=== PATIENT | male | born 1940 | race Caucasian/White ===

== ENCOUNTER 2021-09-24 20:14 | Inpatient (IN) | payer MEDICARE, SELFPAY ==
--- NOTE | ~2021-09-24 | XR_ITS ---
EXAMINATION: XR stent kub - surgery DATE: 09/27/2021 15:02 INDICATION: Left internal ureteral stent placement TECHNIQUE: Fluoroscopic images from a left internal ureteral stent placement are submitted for review . 16 seconds of fluoroscopy time. FINDINGS: There is a left double-J internal ureteral stent projecting in expected position, with proximal Cushing loop at the level of the renal pelvis and distal loop in the pelvis within the bladder lumen. IMPRESSION: 1. Left internal ureteral stent placement. Please refer to real-time procedural findings for detail s. Reviewed, dictated and finalized at location B. IMPRESSION: 1. Left internal ureteral stent placement. Please refer to real-time procedur al findings for details.
--- NOTE | ~2021-09-24 | NM_ITS ---
EXAMINATION: NM hepatobiliary w pharm DATE: 09/25/2021 15:15 INDICATION: Acute cholecystitis. Epigastric abdominal pain. COMPARISON: CT abdomen and pelvis 09/24/2021 TECHNIQUE: 4.9 mCi Tc-99m mebrofenin (Choletec) was administered intravenously. Scintigraphic images of the abdomen were obtained for one hour. Then, 2 mg morphine IV was administered, and imaging was continued for 30 minutes. FINDINGS: There is normal clearance of radiotracer from the blood pool. There is homogeneous tracer u ptake by the liver. Activity progresses to the bowel. There is no activity in the gallbladder. IMPRESSION: 1. Acute cholecystitis. Reviewed, dictated and finalized at location A. IMPRESSION: 1. Acute cholecystitis.
--- NOTE | 2021-09-24 20:00 | ADMGEN ---
This patient, Ruiz Stanton, was admitted to 2 Medical Room 244-. Patient/family oriented to hospital policies and general routines including ID bracelet, bed and alarms, visiting hours, pain management, procedures, bathroom and other care routines, personal items, smoking policy, room service/diet, and visiting hours. Information on how to activate the Rapid Response Team has been discussed. Patient/Family are encouraged to report perceived risks to care and to ask questions if they do not understand what they are told or what they should do.
[2021-09-24 20:20] VITALS: BMI 28.5
--- NOTE | 2021-09-24 20:20 | PM.IMHP ---
H&P: HPI History of Present Illness Date/Time: 09/24/21 20:20 Chief Complaint: Abdominal pain Narrative: 81-year-old male with past medical history of hyperlipidemia and cardiac murmur who presented to [facility] in [facility] with epigastric abdominal pain. The patient presented to the hospital just before midnight on the . He reports that earlier that day he had eaten a large bowl of cereal after which time he began having epigastric abdominal pain as 7/10 in intensity. The pain was aching in nature without any relieving factors. He denied any associated nausea or vomiting. He was told he had a heart murmur several months ago but refused echocardiogram at that time. He denies any orthopnea, paroxysmal nocturnal dyspnea or dyspnea on exertion. In fact he works out on a treadmill for 15 minutes twice a day walking between 2 and 3 mph without symptoms. He denies a history of hypertension. He reports that his blood pressures for the most part or around [address] scan at the outside facility demonstrated evidence of acute cholecystitis with a 5 by 12 mm gallstone impacted in the gallbladder neck with wall thickening 5-6 mm. There was also an incidental finding of an 8 x 6 x 12 mm proximal to mid left ureteral stone with moderate to severe left hydronephrosis and minimal bilateral perinephric stranding with delayed enhancement of the left kidney consistent with chronic obstructive uropathy. He reports that he has had up to 50 kidney stones that he usually passes on his own. He denies any flank pain, dysuria or changes in urinary frequency. He feels as if TMs uses bladder completely. He also had incidental finding of a 3.2 cm abdominal aortic aneurysm and a 1.9 cm proximal right common iliac artery aneurysm. He denies any cough or congestion. He has not had any nausea or vomiting. He has been having normal bowel movements without hematochezia or melena. He reports that he has been NPO since he arrived at the outside facility on the . He was anticipating having surgery on the but the surgeon at that facility did not feel comfortable taking the patient to surgery due to his cardiac murmur. He felt the patient was too high risk for surgery at that facility subsequently the patient was transferred to our facility for surgical evaluation. Vitals at the outside facility blood pressure 145/74 pulse 88 satting 95% on room air. Review of Systems Review of Systems: 12 systems were reviewed with pertinent positives and negatives per HPI. Except as documented in the HPI, all other systems were reviewed and are negative. [facility] Past Medical History Medical History (Updated 09/25/21 @ 03:36 by Kalina Rizzo DO) Cardiac murmur Chronic neuropathic pain Hyperlipidemia Shingles He reports that he takes duloxetine 300 mg daily due to chronic pain from shingles. Surgical History Surgical History (Updated 09/25/21 @ 03:20 by Kalina Rizzo DO) Status post cataract extraction of both eyes with insertion of intraocular lens Family History Family History (Updated 09/25/21 @ 03:21 by Kalina Rizzo DO) Father , Age greater than 80 No problems noted. Mother , Age greater than 80 No problems noted. Social History Social History (Updated 09/25/21 @ 03:36 by Kalina Rizzo DO) Social History: He lives with his of almost 60 years. He quit smoking over 40 years ago and only smoked 1 cigar a day. 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 He has never drank alcohol and denies any illicit substance use. Code status: DNR/DNI (per patient request) Primary care physician: Dr. James Groves Smoking status: Never smoker Alcohol intake: never Substance use: never Spiritual care concerns: No Comments The patient reports that his siblings are still alive and are in their late
[2021-09-24 20:21] VITALS: BP 141/71; PULSE 89; RESP 20; TEMP 37.1; O2SAT 97
[2021-09-24 20:26] VITALS: BP 141/71; PULSE 89; RESP 20; TEMP 37.1; O2SAT 97
[2021-09-24] MEDS: SODIUM CHLORIDE 0.9% IV 1,000 ML 100 ML IV CONT (22:01)
[2021-09-25] VITALS (7 sets, daily range): BP systolic 135–148; BP diastolic 62–71; PULSE 82–102; RESP 16–20; TEMP 36.4–37.4; O2SAT 92–100
--- NOTE | 2021-09-25 | ECHO_ITS ---
Patient Info Name: Ruiz Stanton Age: 81 years : 1940 Gender: Male Ht: 67 in Wt: 182 lbs BSA: 2.00 m2 HR: 93 bpm BP: 138 / 68 mmHg Heart Rhythm: Sinus Rhythm Technical Quality: Fair Exam Date: 09/25/2021 6:42 AM Exam Location: [facility] Patient Status: Outpatient Admit Date: 09/24/2021 Staff Ordering Physician: Kalina Rizzo DO Silo Erector: Quita Lux RDCS Attending Provider: Bismark Orozco MD Referring Physician: Matthias LIRIANO; Exam Type: CA echo dop color flow w con Study Info Indications - Cardiac murmur Complete two-dimensional, color flow and Doppler transthoracic echocardiogram is performed with contrast to opacify the left ventricle and to improve the deliniation of the left ventricle endocardial borders. Contrast/Agitated Saline Contrast/Ag. Saline: Definity Amount: 2.00 ml Administered By: Quita Lux RDCS Existing IV Access: Yes IV Access Condition: patent with no signs of infiltration Summary 1. Normal left ventricular size and thickness. Overall good left ventricular systolic function with mild hypokinesis of the basal septum. Grade 1 diastolic dysfunction is present. Ejection fraction is visually estimated to be 55-60%. 2. Left atrial chamber dimension is mildly enlarged. 3. There is mild tricuspid valve regurgitation. 4. Mild pulmonary hypertension, estimated pulmonary arterial systolic pressure is 47 mmHg. 5. Mild aortic valve calcifications with mild aortic stenosis, valve area 1.6 cm2, mean gradient 10 mmHg. 6. Normal sinus rhythm. 7. Somewhat technically difficult study; definity echo contrast used. Left Ventricle Left ventricular systolic function is normal, estimated at 55-60%. The left ventricular diastolic function is grade I diastolic dysfunction. Left Atria Left atrial chamber dimension is mildly enlarged. Aortic Valve There is mild aortic valve calcification. Pulmonic Valve There is trace pulmonic regurgitation. Mitral Valve There is trace mitral valve regurgitation. Tricuspid Valve There is mild tricuspid valve regurgitation. Mild pulmonary hypertension, estimated pulmonary arterial systolic pressure is 47 mmHg. Left Ventricular Outflow Tract Name Value Normal LVOT 2D LVOT Diameter 2.11 cm LVOT Doppler LVOT Peak Gradient 5 mmHg LVOT Mean Gradient 2 mmHg LVOT VTI 17.03 cm LVOT VTI/AV VTI Ratio 0.45 LVOT Stroke Volume 59.73 ml LVOT CO 5.37 l/min LVOT CI 2.69 L/min/m2 Pulmonic Valve Name Value Normal RVOT Doppler RVOT Peak Gradient 3 mmHg PV Doppler
[2021-09-25 05:55] LABS: Basophils Absolute Auto 0.1 K/mm3 (0.0-0.1); Basophils Percent Auto 0.3 % (0.2-1.2); Eosinophils Percent Auto 0.1 % (0-4.4); Hematocrit 35.5 % (42.0-52.0); Hemoglobin 11.5 g/dL (14.0-18.0); Immature Granulocyte Absolute 0.09 K/mm3 (0.00-0.031); Immature Granulocyte Percent A 0.5 % (0-0.5); Lymphocytes Absolute Auto 1.75 K/mm3 (0.9-3.2); Mean Corpuscular HGB Conc 32.4 g/dl (32-36); Mean Corpuscular Hemoglobin 33.4 pg (26-34); Mean Corpuscular Volume 103.2 fl (80-100); Mean Platelet Volume 9.7 fl (7.4-10.4); Monocytes Absolute Auto 1.8 K/mm3 (0.1-0.6); Monocytes Percent Auto 10.1 % (2.6-8.5); Neutrophils Absolute Auto 13.9 K/mm3 (1.3-6.7); Platelet Count Result 171 k/mm3 (150-375); Red Blood Count 3.44 M/mm3 (4.6-6.20); Red Cell Distribution Width 13.6 % (11.5-14.5); White Blood Count 17.5 K/mm3 (4.5-10.0)
[2021-09-25 06:09] LABS: Alanine Aminotransferase 14 U/L (4-50); Albumin Level 3.6 g/dL (3.5-5.1); Alkaline Phosphatase 51 U/L (38-126); Anion Gap 5 mmol/L (8-16); Aspartate Amino Transferase 43 U/L (17-59); Bilirubin,Total 0.7 mg/dL (0.2-1.3); Blood Urea Nitrogen 19 mg/dL (9-20); Calcium 8.2 mg/dL (8.4-10.2); Carbon Dioxide 27 mmol/L (22-30); Chloride 106 mmol/L (98-107); Estimated CRCL calculation 31 ml/min; Estimated Glomerular Filt Rate 42; Glucose 129 mg/dL (65-110); Potassium 4.3 mmol/L (3.4-5.0); Sodium 138 mmol/L (137-145)
--- NOTE | 2021-09-25 07:06 | WPDURCON ---
Assessment and Plan Assessment and plan (1) Cardiac murmur: Code(s): R01.1 - Cardiac murmur, unspecified Status: Acute (2) Acute cholecystitis: Code(s): K81.0 - Acute cholecystitis Status: Acute (3) Hydronephrosis due to obstruction of ureter: Code(s): N13.1 - Hydronephrosis with ureteral stricture, not elsewhere classified Status: Acute Assessment and Plan: Patient with probable acute cholecystitis and an incidentally found large obstructing left proximal ureteral stone. Ultimately his left ureteral stone require ESWL. I do not believe, however, this is an acute problem and this be done electively in the future. If timing is appropriate for his cholecystectomy we may try and coordinate placement of a left ureteral stent. Otherwise that can be done at the time of left ESWL. Urology Consult Note HPI Date Seen: 09/25/21 Requesting Physician: Rafael You MD Primary Care Provider: James Groves, Consult Narrative Narrative: Ruiz Stanton is a 81 year old male who reports having passed multiple kidney stones in the past, none of which have required intervention. He has been transferred from [facility] where he presented with acute epigastric pain and had CT imaging consistent with acute cholecystitis. Preparations were being made for cholecystectomy but were canceled because of concerns about his cardiac status. It had been recommended several months prior that he undergo cardiology evaluation but he never followed through. During evaluation, in addition to an impacted gallstones with findings of acute cholecystitis, CT scan also demonstrated a large obstructing left proximal ureteral stone. Patient denies flank or left abdominal pain, hematuria or irritable voiding symptoms. This morning the patient is feeling well with resolution of his epigastric pain. Review of Systems Cardiovascular: Cardiovascular: Denies chest pain, Denies lightheadedness, Denies palpitations and Denies dyspnea Respiratory: Respiratory: Denies dyspnea Gastrointestinal: Gastrointestinal: Denies diarrhea, Denies nausea and Denies vomiting Genitourinary: Genitourinary: Denies hematuria and Denies dysuria Endocrine: Endocrine: Denies palpitations PMFSH Past Medical History Medical History Cardiac murmur Chronic neuropathic pain Hyperlipidemia Shingles He reports that he takes duloxetine 300 mg daily due to chronic pain from shingles. Surgical History Surgical History Status post cataract extraction of both eyes with insertion of intraocular lens Family History Family History Father , Age greater than 80 No problems noted. Mother , Age greater than 80 No problems noted. Social History Social History Social History: He lives with his of almost 60 years. He quit smoking over 40 years ago and only smoked 1 cigar a day. 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 He has never drank alcohol and denies any illicit substance use. Code status: DNR/DNI (per patient request) Primary care physician: Dr. James Groves Smoking status: Never smoker Alcohol intake: never Substance use: never Spiritual care concerns: No Meds Home Medications and Allergies Home Medications Medication Instructions Recorded Confirmed Type duloxetine 30 mg PO DAILY 09/24/21 09/24/21 History rosuvastatin 10 mg PO DAILY 09/24/21 09/24/21 History Allergies Allergy/AdvReac Type Severity Reaction Status Date / Time No Known Allergies Allergy Verified 09/24/21 20:24 Vital Signs Vital Signs - 24 hr 09/24/21 20:21 09/24/21 20:26 09/25/21 00:00
--- NOTE | 2021-09-25 08:08 | PM.IMPN ---
Progress Note: A&P Assessment and Plan (1) Acute cholecystitis: Code(s): K81.0 - Acute cholecystitis Status: Acute (2) Cardiac murmur: Code(s): R01.1 - Cardiac murmur, unspecified Status: Acute (3) Hydronephrosis due to obstruction of ureter: Code(s): N13.1 - Hydronephrosis with ureteral stricture, not elsewhere classified Status: Acute (4) Calculus of distal left ureter: Code(s): N20.1 - Calculus of ureter Status: Acute Additional Plan # acute cholecystitis: gen surg consulted. awaiting echo for evlauaation of murmur. he has good exercise tolerance and reprots no symptoms whatsoever with this murmur. he is planned for hida scan today. on iv zosyn, iv fluid and npo status. # systolic mumur: echo to evaluate. was evaluated by cardiology at [facility]. he is known to have one. likely suspected to have mildt o moderate aortic stenosis # left hydronephrosis incidental and asymptatomic. longstanding. # AK VS CKD stage III: cr 1.8 at [facility]. currently 1.6. continue to trend. making urine out. urology on board. planned stent placement when goes for surgery. # DVT proph: # HTN: # Chronic neuropathic pain # DVT proph: SCDs today as he may go for surgery # Code status: DNR Subjective Date/time seen: 09/25/21 08:08 Interval history: HPI: 81-year-old male with past medical history of hyperlipidemia and cardiac murmur who presented to [facility] in [facility] with epigastric abdominal pain. The patient presented to the hospital just before midnight on the . He reports that earlier that day he had eaten a large bowl of cereal after which time he began having epigastric abdominal pain as 7/10 in intensity. The pain was aching in nature without any relieving factors. He denied any associated nausea or vomiting. He was told he had a heart murmur several months ago but refused echocardiogram at that time. He denies any orthopnea, paroxysmal nocturnal dyspnea or dyspnea on exertion. In fact he works out on a treadmill for 15 minutes twice a day walking between 2 and 3 mph without symptoms. He denies a history of hypertension. He reports that his blood pressures for the most part or around [address] scan at the outside facility demonstrated evidence of acute cholecystitis with a 5 by 12 mm gallstone impacted in the gallbladder neck with wall thickening 5-6 mm. There was also an incidental finding of an 8 x 6 x 12 mm proximal to mid left ureteral stone with moderate to severe left hydronephrosis and minimal bilateral perinephric stranding with delayed enhancement of the left kidney consistent with chronic obstructive uropathy. He reports that he has had up to 50 kidney stones that he usually passes on his own. He denies any flank pain, dysuria or changes in urinary frequency. He feels as if TMs uses bladder completely. He also had incidental finding of a 3.2 cm abdominal aortic aneurysm and a 1.9 cm proximal right common iliac artery aneurysm. He denies any cough or congestion. He has not had any nausea or vomiting. He has been having normal bowel movements without hematochezia or melena. He reports that he has been NPO since he arrived at the outside facility on the . He was anticipating having surgery on the but the surgeon at that facility did not feel comfortable taking the patient to surgery due to his cardiac murmur. He felt the patient was too high risk for surgery at that facility subsequently the patient was transferred to our facility for surgical evaluation. 09/25/2021 no overnight events. he denies any abdominal pain .no chest pain or sob. no fever, chills. Review of Systems Review of Systems: All systems reviewed & are unremarkable except as noted in HPI and below (hpi) Exam Narrative: General: Well-developed, well-nourished, no acute distress HEENT: Mucous membranes are tacky, no oral pharyngeal erythema, no scleral icterus Respiratory: Clear to auscu
[2021-09-25] MEDS: PERFLUTREN LIPID MICROSPHERES 1.5 ML VIAL DILUTED TO 10 ML TOTAL VOLUME IV PUSH (08:37)
--- NOTE | 2021-09-25 08:37 | IVDEFINITY ---
Prior to administration of IV Definity the patient was educated on the risks and benefits of the imaging enhancing agent including potential adverse side effects. The patient verbalized understanding. Allergies were verified. No exclusion criteria were identified and at least one of the following inclusion criteria were met: 1) physician request, 2) patient technically difficult to image (per the [place] [employer]chocardi[employer] guidelines of two or more segments not discernable within the apical view), or 3) questionable left ventricular function. ?
[2021-09-25] MEDS: SODIUM CHLORIDE 0.9% IV 1,000 ML 100 ML IV CONT ×2 (09:12→20:08)
--- NOTE | 2021-09-25 09:44 | PM.CNGS ---
Assessment and Plan Assessment and plan (1) Acute cholecystitis: Code(s): K81.0 - Acute cholecystitis Status: Acute Assessment and Plan: CT scan and ultrasound radiology report from [facility] was reviewed in the patient's paper chart. There is a disk on the chart as well with his imaging from [facility] that I asked the nurse to take to Radiology to load to our system. CT suggests a gallstone in the neck of the gallbladder with wall thickening, no pericholecystic fluid or biliary duct dilatation. RUQ ultrasound showed a 5 x 12 mm nonmobile gallstone in the neck of the gallbladder with wall thickening and positive Pabon's sign. I do not see that a HIDA scan was performed. The patient's pain has completely resolved and his abdominal exam is benign, but he continues to have an elevated WBC count of 17,000. We will get a HIDA scan today to further evaluate for cystic duct patency while awaiting his cardiac workup. Echo pending for cardiac murmur. Further plan on surgery will depend on HIDA and echo results. Continue IV antibiotics, IV fluids, and will keep NPO for now. Thank you for allowing us to see the patient in consultation and we will continue to follow along with you. (2) Calculus of distal left ureter: Code(s): N20.1 - Calculus of ureter Status: Acute Assessment and Plan: Urology consulted, recommendations noted. Will touch base with Urology once we decipher plan and timing of surgery based on HIDA and echo results. (3) Hydronephrosis due to obstruction of ureter: Code(s): N13.1 - Hydronephrosis with ureteral stricture, not elsewhere classified Status: Acute (4) Cardiac murmur: Code(s): R01.1 - Cardiac murmur, unspecified Status: Acute Assessment and Plan: Echo pending. If this shows severe aortic stenosis, then this would significantly increase his risks for surgery. Management per Hospitalist. Additional Plan I have discussed the patient's case and plan of care with Dr. Ross. History of Present Illness Consult details Consult date: 09/25/21 Reason for consult: other ( acute cholecystitis) Requesting physician: Kalina Rizzo DO Narrative: This is an 81-year-old male with a history of hyperlipidemia and cardiac murmur. He presented to [facility] with complaints of epigastric abdominal pain 2 nights ago. In review of his paper chart, it appears [place] a [place] [id number], normal lipase, normal LFTs, and otherwise unremarkable labs. EKG and troponins were unremarkable. He had a CT scan of the abdomen and pelvis which showed a gallstone in the neck of the gallbladder with gallbladder wall thickening, no pericholecystic fluid or biliary duct dilatation. Incidentally noted, was at 3.2 cm abdominal aortic aneurysm, 1.9 cm proximal right common iliac artery aneurysm, and a left ureteral stone with moderate to severe left hydronephrosis appearing chronic. Right upper quadrant abdominal ultrasound showed a 5 x 12 mm gallstone in the neck of the gallbladder with wall thickening, and a positive Pabon's sign. He was started on IV Zosyn. The patient was recently told about his cardiac murmur and at that time refused an echocardiogram. They were apparently unable to obtain an echocardiogram at that facility and requested transfer to have preoperative cardiac workup and surgical evaluation. The patient was then transferred to our facility. Our service has been consulted for acute cholecystitis. He is now seen on the medical floor. He is currently NPO. He has been afebrile with stable vital signs. White blood cell count was up to 17,500 and LFTs remain normal. The patient reports his abdominal pain has completely resolved. He denies any nausea, vomiting, fever, or chills. Denies any change in his bowel habits. He reports feeling tired from being up throughout the night, but otherwise completely normal. No other complaint
--- NOTE | 2021-09-25 10:34 | PCDIET ---
Adequate before NPO for surgery.
--- NOTE | 2021-09-25 10:38 | PCDIET ---
Adequate nutrition before made NPO for surgery.
[2021-09-25] MEDS: MORPHINE SULFATE (*CRX) 2 MG/ML INJ IV PUSH (14:39)
[2021-09-26] VITALS (7 sets, daily range): BP systolic 118–139; BP diastolic 52–71; PULSE 86–97; RESP 16–18; TEMP 36.3–37.1; O2SAT 95–98
[2021-09-26 06:13] LABS: Basophils Percent Auto 0.2 % (0.2-1.2); Eosinophils Percent Auto 0.1 % (0-4.4); Hematocrit 35.2 % (42.0-52.0); Hemoglobin 11.3 g/dL (14.0-18.0); Immature Granulocyte Absolute 0.12 K/mm3 (0.00-0.031); Immature Granulocyte Percent A 0.7 % (0-0.5); Lymphocytes Absolute Auto 1.86 K/mm3 (0.9-3.2); Lymphocytes Percent Auto 10.4 % (18.3-44.2); Mean Corpuscular HGB Conc 32.1 g/dl (32-36); Mean Corpuscular Hemoglobin 32.6 pg (26-34); Mean Corpuscular Volume 101.4 fl (80-100); Mean Platelet Volume 9.7 fl (7.4-10.4); Monocytes Absolute Auto 1.9 K/mm3 (0.1-0.6); Monocytes Percent Auto 10.8 % (2.6-8.5); Neutrophils Percent Auto 77.8 % (45.5-73.1); Platelet Count Result 140 k/mm3 (150-375); Red Blood Count 3.47 M/mm3 (4.6-6.20); Red Cell Distribution Width 13.3 % (11.5-14.5)
[2021-09-26 06:34] LABS: Alanine Aminotransferase 17 U/L (4-50); Albumin Level 3.4 g/dL (3.5-5.1); Alkaline Phosphatase 51 U/L (38-126); Anion Gap 5 mmol/L (8-16); Aspartate Amino Transferase 59 U/L (17-59); Bilirubin,Total 0.9 mg/dL (0.2-1.3); Blood Urea Nitrogen 18 mg/dL (9-20); Carbon Dioxide 24 mmol/L (22-30); Chloride 106 mmol/L (98-107); Estimated CRCL calculation 33 ml/min; Estimated Glomerular Filt Rate 45; Glucose 114 mg/dL (65-110); Potassium 3.7 mmol/L (3.4-5.0); Sodium 135 mmol/L (137-145)
[2021-09-26] MEDS: SODIUM CHLORIDE 0.9% IV 1,000 ML 100 ML IV CONT ×2 (07:14→18:41)
[2021-09-26] MEDS: DULoxetine HCL 30 MG CAPSULE.DR PO (08:05)
[2021-09-26] MEDS: ROSUVASTATIN 10 MG TABLET PO (08:05)
--- NOTE | 2021-09-26 09:38 | PM.PNGS ---
Progress Note: A&P Assessment and Plan (1) Acute cholecystitis: Code(s): K81.0 - Acute cholecystitis Status: Acute Assessment and Plan: HIDA confirmed acute cholecystitis. WBC remains elevated. Discussed proceeding with a laparoscopic cholecystectomy, possible open by Dr. Ross under general anesthesia versus having a percutaneous cholecystostomy tube for treatment. Description of the procedure, risks, benefits, expected outcomes, and expected recovery were discussed with the patient in detail. All questions were answered. He would like to proceed with surgery. Coordinated with Urology and the OR schedule to have him added on for surgery tomorrow. Will allow clear liquids today and make NPO after midnight. (2) Calculus of distal left ureter: Code(s): N20.1 - Calculus of ureter Status: Acute Assessment and Plan: Discussed case with Urology, planning to coordinate for surgery tomorrow afternoon. (3) Hydronephrosis due to obstruction of ureter: Code(s): N13.1 - Hydronephrosis with ureteral stricture, not elsewhere classified Status: Acute (4) Cardiac murmur: Code(s): R01.1 - Cardiac murmur, unspecified Status: Acute Assessment and Plan: Echo showed mild aortic stenosis, grade 1 diastolic dysfunction with EF 55-60%, mild pulm HTN, mild TVR. Discussed added risks with surgery and aortic stenosis with the patient, see above. Additional Plan I have discussed the patient's case and plan of care with Dr. Ross. Subjective Subjective Date/Time Seen: 09/26/21 09:00 Patient reports: no new complaints, flatus, bowel movement and afebrile Interval history: Patient seen and examined this morning, he is NPO in case of surgery. He has no complaints and denies any abdominal pain, nausea, vomiting, or bloating. He has done well overnight. He does report having some tenderness in the RUQ but mild. Review of Systems Review of Systems: All systems reviewed & are unremarkable except as noted in HPI and below Exam Const: General: no acute distress and awake Orientation/consciousness: patient oriented x3 GI: Inspection: non-distended and no visible herniation GI Palp: Yes Soft to palpation, Yes Tenderness to palpation present (GI) (very mild TTP in RUQ), No Guarding due to palpation present (GI) and No Rebound tenderness present Auscultation: normal bowel sounds Skin: General skin exam: normal color Neuro: General: moves all extremities and no focal motor deficits Psych: Insight: Good insight present (Psych) Judgement: Good judgement present (Psych) Objective Data Vital Signs Vital Signs: Vital Signs - 24 hr 09/25/21 10:47 09/25/21 14:00 09/25/21 18:16 Temperature 98.2 F 99.4 F 97.6 F Pulse Rate 82 97 89 Respiratory Rate 18 16 16 Blood Pressure 135/71 148/62 H 145/62 H Pulse Oximetry 98 100 97 09/25/21 22:00 09/26/21 02:00 09/26/21 06:00 Temperature 98.2 F 97.3 F L 97.9 F Pulse Rate 102 H 97 95 Respiratory Rate 20 18 18 Blood Pressure 143/70 H 129/57 L 139/71 Pulse Oximetry 99 96 96 Intake/Output Intake/Output: Intake & Output 09/23/21 09/24/21 09/25/21 09/26/21 23:59 23:59 23:59 23:59 Intake Total 2200 1050 Output Total 200 Balance 2000 1050 Meds/Results Medications: Active Medications Generic Name Dose Route Start Last Admin Trade Name Freq PRN Reason Stop Dose Admin Acetaminophen 650 mg 09/26/21 09:37 Acetaminophen 325 Mg Tablet PO Q4H PRN Pain Rated 1-3 Duloxetine HCl 30 mg 09/25/21 09:00 09/26/21 08:05 Duloxetine Hcl 30 Mg Capsule.Dr PO 30 mg DAILY NATALYA Administration Sodium Chloride 1,000 mls @ 100 mls/hr 09/24/21 20:15 09/26/21 07:14 Normal Saline Iv IV CONT 100 mls/hr .Q10H NATALYA Administration Piperacillin Sod/Tazobactam Sod 2.25 gm in 50 mls @ 100 mls/hr 09/25/21 03:00 09/26/21 08:05 Zosyn 2.25 Gm/D5w 50 Ml IVPB 100 mls/hr Q6H NATALYA Administration Morphine Sulfate 2
--- NOTE | 2021-09-26 12:23 | PM.IMPN ---
Progress Note: A&P Assessment and Plan (1) Acute cholecystitis: Code(s): K81.0 - Acute cholecystitis Status: Acute Assessment and Plan: Hida scan today. on iv zosyn, iv fluids Pt to have lap roman tomorrow (2) Cardiac murmur: Code(s): R01.1 - Cardiac murmur, unspecified Status: Acute Assessment and Plan: Echo ordered pt is asymptomatic (3) Hydronephrosis due to obstruction of ureter: Code(s): N13.1 - Hydronephrosis with ureteral stricture, not elsewhere classified Status: Acute Assessment and Plan: left hydronephrosis incidental and asymptatomic. longstanding. Pt to have cystoscopy and stent placement tomorrow. (4) Calculus of distal left ureter: Code(s): N20.1 - Calculus of ureter Status: Acute Assessment and Plan: AK VS CKD stage III: baseline creat is 1.8, currently 1.5. planned stent placement tomorrow Additional Plan # DVT proph: SCDs # HTN: # Chronic neuropathic pain Subjective Date/time seen: 09/26/21 12:23 Interval history: HPI: 81-year-old male with past medical history of hyperlipidemia and cardiac murmur who presented to [facility] in [facility] with epigastric abdominal pain. The patient presented to the hospital just before midnight on the . He reports that earlier that day he had eaten a large bowl of cereal after which time he began having epigastric abdominal pain as 7/10 in intensity. The pain was aching in nature without any relieving factors. He denied any associated nausea or vomiting. He was told he had a heart murmur several months ago but refused echocardiogram at that time. He denies any orthopnea, paroxysmal nocturnal dyspnea or dyspnea on exertion. In fact he works out on a treadmill for 15 minutes twice a day walking between 2 and 3 mph without symptoms. He denies a history of hypertension. He reports that his blood pressures for the most part or around [address] scan at the outside facility demonstrated evidence of acute cholecystitis with a 5 by 12 mm gallstone impacted in the gallbladder neck with wall thickening 5-6 mm. There was also an incidental finding of an 8 x 6 x 12 mm proximal to mid left ureteral stone with moderate to severe left hydronephrosis and minimal bilateral perinephric stranding with delayed enhancement of the left kidney consistent with chronic obstructive uropathy. He reports that he has had up to 50 kidney stones that he usually passes on his own. He denies any flank pain, dysuria or changes in urinary frequency. He feels as if TMs uses bladder completely. He also had incidental finding of a 3.2 cm abdominal aortic aneurysm and a 1.9 cm proximal right common iliac artery aneurysm. He denies any cough or congestion. He has not had any nausea or vomiting. He has been having normal bowel movements without hematochezia or melena. He reports that he has been NPO since he arrived at the outside facility on the . He was anticipating having surgery on the but the surgeon at that facility did not feel comfortable taking the patient to surgery due to his cardiac murmur. He felt the patient was too high risk for surgery at that facility subsequently the patient was transferred to our facility for surgical evaluation. 09/25/2021 no overnight events. he denies any abdominal pain .no chest pain or sob. no fever, chills. 09/26/2021 Pt is going to have surgery - lap cholecystectomy and cystoscopy and placement of a left ureteral stent tomorrow, no specific complaints. Pt is medically stable for surgery. Review of Systems Review of Systems: All systems reviewed & are unremarkable except as noted in HPI and below Exam Const: General: cooperative and healthy appearing; No in distress Nutritional Appearance: overweight Orientation/consciousness: oriented to person HENMT: Head: normal to inspection Resp: Effort & Inspection: no respiratory distress Auscultation:
--- NOTE | 2021-09-26 17:03 | WPDUROPN2 ---
Progress Note: A&P Assessment and Plan (1) Calculus of distal left ureter: Code(s): N20.1 - Calculus of ureter Status: Acute Assessment and Plan: Discussed management of large left ureteral stone with pt. and his - cysto/left stent placment 09/27 followed by left ESWL [id number]. Subjective Subjective Date/Time Seen: 09/26/21 17:03 Feeling well, no complaints Review of Systems Cardiovascular: Cardiovascular: Denies chest pain, Denies lightheadedness, Denies palpitations and Denies dyspnea Respiratory: Respiratory: Denies dyspnea Gastrointestinal: Gastrointestinal: Denies diarrhea, Denies nausea and Denies vomiting Genitourinary: Genitourinary: Denies hematuria and Denies dysuria Endocrine: Endocrine: Denies palpitations Exam Const: General: no acute distress Resp: Effort & Inspection: normal respiratory effort GI: Inspection: non-distended GI Palp: No abdominal tenderness and No Guarding due to palpation present (GI) Auscultation: normal bowel sounds Objective Data Vital Signs Vital Signs: Vital Signs - 24 hr 09/25/21 18:16 09/25/21 22:00 09/26/21 02:00 Temperature 97.6 F 98.2 F 97.3 F L Pulse Rate 89 102 H 97 Respiratory Rate 16 20 18 Blood Pressure 145/62 H 143/70 H 129/57 L Pulse Oximetry 97 99 96 09/26/21 06:00 09/26/21 10:20 09/26/21 14:40 Temperature 97.9 F 97.6 F 98.8 F Pulse Rate 95 94 86 Respiratory Rate 18 16 16 Blood Pressure 139/71 118/63 133/64 Pulse Oximetry 96 97 98 Intake/Output Intake/Output: Intake & Output 09/23/21 09/24/21 09/25/21 09/26/21 23:59 23:59 23:59 23:59 Intake Total 2200 1670 Output Total 200 Balance 1999 1670 Meds/Results Medications: Active Medications Generic Name Dose Route Start Last Admin Trade Name Freq PRN Reason Stop Dose Admin Acetaminophen 650 mg 09/26/21 09:37 Acetaminophen 325 Mg Tablet PO Q4H PRN Pain Rated 1-3 Acetaminophen 1,000 mg 09/27/21 13:00 Acetaminophen 500 Mg Tablet PO 09/27/21 13:01 ONCE ONE Chlorhexidine Gluconate 1 applic 09/27/21 06:00 Chlorhexidine Gluconate 4% Ninfa 120 Ml Btl TOPICAL 09/27/21 06:01 ONCE ONE Duloxetine HCl 30 mg 09/25/21 09:00 09/26/21 08:05 Duloxetine Hcl 30 Mg Capsule.Dr PO 30 mg DAILY NATALYA Administration Sodium Chloride 1,000 mls @ 100 mls/hr 09/24/21 20:15 09/26/21 07:14 Normal Saline Iv IV CONT 100 mls/hr .Q10H NATALYA Administration Piperacillin Sod/Tazobactam Sod 2.25 gm in 50 mls @ 100 mls/hr 09/25/21 03:00 09/26/21 15:40 Zosyn 2.25 Gm/D5w 50 Ml IVPB Infused Q6H NATALYA Infusion Ketorolac Tromethamine 15 mg 09/27/21 13:00 Ketorolac 15 Mg/Ml Vial (*Bkc) IV PUSH 09/27/21 13:01 ONCE ONE Morphine Sulfate 2 mg 09/24/21 20:14 09/25/21 14:39 Morphine Sulfate (*Crx) 2 Mg/Ml Inj IV PUSH 2 mg Q4H PRN Administration Pain Rated 7-10 Ondansetron HCl 4 mg 09/24/21 20:14 Ondansetron Inj 4 Mg/2 Ml Vial IV PUSH Q6H PRN Nausea And Vomiting Rosuvastatin Calcium 10 mg 09/25/21 09:00 09/26/21 08:05 Rosuvastatin 10 Mg Tablet PO 10 mg DAILY NATALYA Administration Radiology Results: ITS Impressions Hepatobiliary Scan Nuclear Medicine 09/25/21 15:28 IMPRESSION: 1. Acute cholecystitis. Labs Labs: Laboratory Results - last 24 hr 09/26/21 09/26/21 05:19 05:19 WBC 18.0 H RBC 3.47 L Hgb 11.3 L Hct 35.2 L MCV 101.4 H MCH 32.6 MCHC 32.1 RDW 13.3 Plt Count 140 L MPV 9.7 Immature Gran % (Auto) 0.7 H Neut % (Auto) 77.8 H Lymph % (Auto) 10.4 L Dodge % (Auto) 10.8 H Eos % (Auto) 0.1 Baso % (Auto) 0.2 Lymph # (Auto) 1.86 Dodge # (Auto) 1.9 H Eos # (Auto) 0.0 Baso # (Auto) 0.0 Abs Immat Gran (auto) 0.12 H Absolute Neuts (auto) 14.0 H Absolute Nucleated RBC 0.0 Nucleated RBC % 0.0 Sodium 135 L Potassium 3.7 Chloride 106 Carbon Dioxide 24 Anion Gap 5 L BUN 18 Creat
[2021-09-27] VITALS (13 sets, daily range): BP systolic 104–146; BP diastolic 39–69; PULSE 65–94; RESP 15–20; TEMP 36.1–37; O2SAT 92–99
[2021-09-27] MEDS: CHLORHEXIDINE GLUCONATE 4% SOL 120 ML BTL 1 APPLIC TOPICAL (05:59)
[2021-09-27] MEDS: SODIUM CHLORIDE 0.9% IV 1,000 ML 100 ML IV CONT ×2 (06:00→23:06)
--- NOTE | 2021-09-27 06:34 | WPDHPUPDATE1 ---
History and Physical Update Update Date/Time: 09/27/21 06:34 History and Physical has been reviewed, including an updated exam of the patient. There are NO changes in the patient's condition. Risks, benefits, and alternatives have been discussed and questions answered. Patient agrees to proceed with procedure.
[2021-09-27 06:35] LABS: Hemoglobin 10.8 g/dL (14.0-18.0); Mean Corpuscular HGB Conc 33.8 g/dl (32-36); Mean Corpuscular Hemoglobin 33.1 pg (26-34); Mean Corpuscular Volume 98.2 fl (80-100); Mean Platelet Volume 9.7 fl (7.4-10.4); Platelet Count Result 141 k/mm3 (150-375); Red Blood Count 3.26 M/mm3 (4.6-6.20); Red Cell Distribution Width 12.9 % (11.5-14.5); White Blood Count 16.2 K/mm3 (4.5-10.0)
[2021-09-27 06:38] LABS: Alanine Aminotransferase 22 U/L (4-50); Albumin Level 3.3 g/dL (3.5-5.1); Alkaline Phosphatase 55 U/L (38-126); Amylase 41 U/L (30-110); Anion Gap 7 mmol/L (8-16); Aspartate Amino Transferase 58 U/L (17-59); Bilirubin,Total 0.9 mg/dL (0.2-1.3); Blood Urea Nitrogen 23 mg/dL (9-20); Calcium 7.8 mg/dL (8.4-10.2); Carbon Dioxide 21 mmol/L (22-30); Chloride 106 mmol/L (98-107); Estimated CRCL calculation 38 ml/min; Estimated Glomerular Filt Rate 53; Glucose 114 mg/dL (65-110); Lipase 22 U/L (23-300); Potassium 3.5 mmol/L (3.4-5.0); Sodium 134 mmol/L (137-145)
--- NOTE | 2021-09-27 08:33 | ECG_ITS ---
Measurements Intervals [place] Rate: 92 P: 49 MN: 147 QRS: 11 QRSD: 102 T: 38 QT: 346 QTc: 428 Interpretive Statements SINUS RHYTHM INCOMPLETE RIGHT BUNDLE BRANCH BLOCK [90+ ms QRS DURATION, TERMINAL R IN V1/V2, 40+ ms S IN I/aVL/V4/V5/V6] NONSPECIFIC T-WAVE ABNORMALITY NO PREVIOUS ECG AVAILABLE FOR COMPARISON Electronically Signed On 09-27-2021 14:00:42 CDT by Olivia Rees M.D.
[2021-09-27] MEDS: ROSUVASTATIN 10 MG TABLET PO (09:26)
[2021-09-27] MEDS: DULoxetine HCL 30 MG CAPSULE.DR PO (09:26)
--- NOTE | 2021-09-27 11:09 | PM.IMPN ---
Progress Note: A&P Assessment and Plan (1) Cardiac murmur: Code(s): R01.1 - Cardiac murmur, unspecified Status: Acute (2) Hydronephrosis due to obstruction of ureter: Code(s): N13.1 - Hydronephrosis with ureteral stricture, not elsewhere classified Status: Acute (3) Calculus of distal left ureter: Code(s): N20.1 - Calculus of ureter Status: Acute (4) Acute cholecystitis: Code(s): K81.0 - Acute cholecystitis Status: Acute Additional Plan # acute cholecystitis -plan for laparoscopic cholecystectomy today -antibiotics: Zosyn -pain control: Morphine -nausea: Zofran -IV fluids: NS 100cc/hr # kidney stone hydronephrosis left-sided, obstructive uropathy -8 by 6 x 12 mm proximal mid left ureteral stone with left hydronephrosis -plan for urological stone retrieval today, possible stent placement # other chronic conditions -hyperlipidemia: Continue rosuvastatin -depression: Duloxetine Diet: NPO for surgery DVT prophylaxis: Code status: Do not resuscitate Disposition: Surgery today Time Spent With Patient Time with patient: 15 - 25 minutes Subjective Date/time seen: 09/27/21 11:09 Patient seen and examined. He is doing well no new complaints. Patient is NPO for surgery today. Plan for laparoscopic cholecystectomy and left kidney stone retrieval. Patient denies fever, chills nausea, vomiting, diarrhea, chest pain, shortness of breath. Review of Systems Review of Systems: Constitutional: No Fever, No Chills, No Night Sweats, No Fatigue, No Malaise ENT/Mouth: No Hearing Changes, No Ear Pain, No Nasal Congestion, No Sinus Pain, No Hoarseness, No sore throat, No Rhinorrhea, No Swallowing Difficulty Eyes: No Eye Pain, No Redness, No Vision Changes Cardiovascular: No Chest Pain, No Palpitations, No Dyspnea on Exertion, No Orthopnea, No Claudication, No Edema Respiratory: No Cough, No Sputum, No Wheezing, No Shortness of Breath Gastrointestinal: No Nausea, No Vomiting, No Diarrhea, No Constipation, No Heartburn, No Hematochezia, No Melena. Endorses abdominal pain Genitourinary: No Dysuria, No Urinary Frequency, No Hematuria, No Urinary Incontinence, No Urgency Musculoskeletal: No Arthralgias, No Myalgias, No Joint Swelling, No Joint Stiffness, No Back Pain Skin: No Skin Lesions, No Pruritis, No Hair Changes Neuro: No Weakness, No Numbness, No Paresthesias, No Loss of Consciousness, No Syncope, No Dizziness, No Headache Psych: No Anxiety/Panic, No Depression, No Insomnia Heme: No Bruising, No Bleeding Lymph: No Adenopathy Endocrine: No Polyuria, No Polydipsia, No Temperature Intolerance Exam Narrative: - GENERAL: Pleasant elderly male in no acute distress. - EYES: EOMI. Anicteric. - HENT: Moist mucous membranes. - LUNGS: Clear to auscultation bilaterally, no wheezing, rhonchi, or rales. - CARDIOVASCULAR: Regular rate and rhythm. No murmur. No JVD. - ABDOMEN: Soft, non-distended. Abdominal pain on deep palpation. No palpable masses. - EXTREMITIES: No edema. Peripheral pulses 2+. Non-tender. - NEUROLOGIC: No focal neurological deficits. CN II-XII grossly intact. - PSYCHIATRIC: Awake, Alert and oriented x 3. Appropriate mood and affect. - SKIN: No rashes or lesions. Warm. - LYMPH: No cervical lymphadenopathy. Objective Data Vital Signs Vital Signs: Vital Signs - 24 hr 09/26/21 14:40 09/26/21 18:00 09/26/21 20:00 Temperature 37.1 C 36.5 C Pulse Rate 86 88 88 Respiratory Rate 16 16 16 Blood Pressure 133/64 136/52 L Pulse Oximetry 98 97 97 09/26/21 22:00 09/27/21 02:00 09/27/21 06:00 Temperature 36.7 C 36.7 C 36.9 C Pulse Rate 93 91 92 Respiratory Rate 18 18 18 Blood Pressure 120/62 146/69 H 133/69 Pulse Oximetry 95 96 96 09/27/21 10:00 Temperature 37.0 C Pulse Rate 92 Respiratory Rate 20 Blood Pressure 131/56 L Pulse Oximetry 97 Intake/Output Intake/Output: Intake & Output 09/24/21 09/25/21 09/26/21 09/27/21 23:59 23:59 23:59 23:59
--- NOTE | 2021-09-27 12:14 | WPDHPUPDATE1 ---
History and Physical Update Update Date/Time: 09/27/21 12:14 History and Physical has been reviewed, including an updated exam of the patient. There are NO changes in the patient's condition. Risks, benefits, and alternatives have been discussed and questions answered. Patient agrees to proceed with procedure.
--- NOTE | 2021-09-27 12:42 | PC.NURSE ---
On 09/27/21, the student, [Niko Diggs], provided care and completed [facility] documentation on this patient. I have reviewed the student's documentation and agree with the findings.
[2021-09-27] MEDS: LACTATED RINGERS 1,000 ML 30 ML IV CONT ×2 (13:35→15:57)
[2021-09-27] MEDS: ACETAMINOPHEN 500 MG TABLET 1000 MG PO (13:38)
[2021-09-27] MEDS: KETOROLAC 15 MG/ML VIAL (*BKC) IV PUSH (13:38)
--- NOTE | 2021-09-27 13:45 | WPDANESEPPF ---
Anes - Initial Pre Proc Eval Procedure: Operation Date: 09/27/21 14:15 Proposed Procedures p Laparoscopic Cholecystectomy - Zelda Ross MD s Cystoscopy, Left Stent Placement - Cipriano Reynoso MD Date/Time: 09/27/21 13:45 Surgeon: Hosea Rosales DO Pre Op Diagnosis: Acute cholecystitis Patient Data Age: 81 Gender: M Height: 1.7 m Weight: 82.6 kg Last Vital Signs Temp 37.0 C 09/27/21 10:00 Pulse 92 09/27/21 10:00 Resp 20 09/27/21 10:00 BP 131/56 L 09/27/21 10:00 Pulse Ox 97 09/27/21 10:00 Allergies Allergy/AdvReac Type Severity Reaction Status Date / Time No Known Allergies Allergy Verified 09/24/21 20:24 Home Medications Medication Instructions Recorded Confirmed Type duloxetine 30 mg PO DAILY 09/24/21 09/24/21 History rosuvastatin 10 mg PO DAILY 09/24/21 09/24/21 History Laboratory Tests 09/27/21 09/27/21 09/27/21 06:01 06:01 06:01 WBC 16.2 K/mm3 H K/mm3 (4.5-10.0) RBC 3.26 M/mm3 L M/mm3 (4.6-6.20) Hgb 10.8 g/dL L g/dL (14.0-18.0) Hct 32.0 % L % (42.0-52.0) MCV 98.2 fl fl (80-100) MCH 33.1 pg pg (26-34) MCHC 33.8 g/dl g/dl (32-36) RDW 12.9 % % (11.5-14.5) Plt Count 141 k/mm3 L k/mm3 (150-375) MPV 9.7 fl fl (7.4-10.4) Sodium 134 mmol/L L mmol/L (137-145) Potassium 3.5 mmol/L mmol/L (3.4-5.0) Chloride 106 mmol/L mmol/L (98-107) Carbon Dioxide 21 mmol/L L mmol/L (22-30) Anion Gap 7 mmol/L L mmol/L (8-16) BUN 23 mg/dL H mg/dL (9-20) Creatinine 1.30 mg/dL mg/dL (0.7-1.3) Estim Creat Clear Calc 38 ml/min ml/min Estimated GFR 53 L (59 - ) Glucose 114 mg/dL H mg/dL (65-110) Calcium 7.8 mg/dL L mg/dL (8.4-10.2) Total Bilirubin 0.9 mg/dL mg/dL (0.2-1.3) AST 58 U/L U/L (17-59) ALT 22 U/L U/L (4-50) Alkaline Phosphatase 55 U/L U/L (38-126) Total Protein 6.0 g/dL L g/dL (6.3-8.2) Albumin 3.3 g/dL L g/dL (3.5-5.1) Amylase 41 U/L U/L (30-110) Lipase 22 U/L L U/L (23-300) Blood Type O Positive Antibody Screen Negative Patient hx anesthesia problems: none Family hx anesthesia problems: none Results Review: All pre-operative results and documents have been reviewed as part of the pre-operative evaluation. [facility] Past Medical History Medical History Cardiac murmur Chronic neuropathic pain Hyperlipidemia Shingles He reports that he takes duloxetine 300 mg daily due to chronic pain from shingles. Surgical History Surgical History Status post cataract extraction of both eyes with insertion of intraocular lens Family History Family History Father , Age greater than 80 No problems noted. Mother , Age greater than 80 Gallbladder disease Social History Social History Social History: He lives with his of almost 60 years. He quit smoking over 40 years ago and only smoked 1 cigar a day. 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 He has never drank alcohol and denies any illicit substance use. Code status: DNR/DNI (per patient request) Primary care physician: Dr. James Groves Smoking status: Never smoker Alcohol intake: never Substance use: never Spiritual care concerns: No Anes - Eval Final PreProcedure Day of Procedure 09/27/21 13:45 Patient weight: overweight Heart: regular rate and rhythm Lungs: clear to auscultation Airway: Mallampati scale class II Neurolo
[2021-09-27] MEDS: BUPIVACAINE/EPINEPHRINE 0.25% 10 ML VIAL 30 ML INFILTRATE (14:36)
[2021-09-27] MEDS: ceFAZolin SODIUM 1 GM VIAL IV PUSH (14:36)
--- NOTE | 2021-09-27 15:01 | W.PM.PROC2 ---
Procedure Note - Detailed Date of Procedure 09/27/21 Pre-op Diagnosis Acute cholecystitis, left proximal ureteral stone. Post-op Diagnosis Same Procedure Performed Cysto., urethral dilatation, left stent placement Surgeon Cipriano Reynoso MD Anesthesia General Description of Procedure The patient was brought to the operative suite where he was prepped and draped in a routine sterile fashion while in the dorsal lithotomy position. A 19 F rigid cystoscope was placed in her bladder and the bladder was circumferentially inspected. He did have 2 areas of stricture (meatus and bulbous urethra) that I dilated from 16F->22F with Juliana sounds. The prostatic urethral estimated length was 2.0cm. There was mild obstruction of the prostatic urethra with no median lobe. The bladder mucosa was without hyperemia. There was no intravesical foreign body or neoplasm. There was a single orthotopic ureteral orifice bilaterally. I advanced .035 glidewire into the left renal pelvis under fluoroscopy. A 4.8F variable length ureteral stent was positioned with the proximal coil in the renal pelvis and the distal coil in the bladder. Scopes and wires were removed after emptying the patient's bladder. Estimated Blood Loss 0 Urine Output 900 Drains No Packing No Pathology None sent Complications No immediate complications Condition Stable Disposition PACU
--- NOTE | 2021-09-27 15:48 | W.PM.PROC2 ---
Procedure Note - Detailed Date of Procedure 09/27/21 Pre-op Diagnosis Acute cholecystitis Post-op Diagnosis Other (Acute gangrenous cholecystitis) Procedure Performed laparoscopic cholecystectomy Surgeon Zelda Ross MD Anesthesia General Indications 81 y/o M presenting c acute cholecystitis, cholelithiasis Findings acute gangrenous cholecystitis Description of Procedure The patient was taken to the operating room placed in the supine position. After adequate induction of general anesthesia, the patient was prepped and draped in normal sterile fashion. A time-out was then performed to verify the patient's identity as well as the procedure being performed. I then made a 5 mm incision in the infraumbilical region. Through this, a Veress needle was placed into the peritoneal cavity and CO2 gas was then insufflated. After adequate pneumoperitoneum was achieved, the Veress needle was removed and a 5 mm optiview trocar was placed through this incision under direct visualization. I then placed the laparoscope through this trocar site and under direct visualization placed a further 12 mm subxiphoid port as well as 2 additional 5 mm ports in the right upper abdomen. The RUQ was very inflammed and an omental rind was noted to encompass the gallbladder. Once I was able to dissect off the omentum, the gallbladder was then identified and was noted to be severely inflamed, distended, with noted areas of wall necrosis. Given the amount of inflammation and distension, I decompressed the gallbladder. Very thick bilious drainage, as well as some pus was noted. I was then able to place a grasper at the dome of the gallbladder and this was retracted anterior and cephalad up over the liver. A 2nd retractor was then placed at the infundibulum and retracted laterally, this allowed visualization of the triangle of Calot. I then was able to visualize the cystic duct in its entirety from its proximal insertion into the gallbladder, to its distal junction with the common hepatic/common bile duct junction. At this point, I carefully skeletonized the proximal cystic duct with the [place] dissector. I then clipped and transected the proximal cystic duct. Next I visualized the cystic artery. Again the artery was skeletonized, clipped, and transected. I then used the Bovie cautery to take down the peritoneal attachments of the gallbladder off the liver bed. This was very difficult given the amount of inflammation and necrosis in in the posterior wall. Once the gallbladder specimen was completely detached, an endo-pouch was placed through the 12 mm port site. I then placed the gallbladder specimen into the Endo pouch and removed the endo-pouch from the 12 mm port site. The specimen will now be sent to pathology for further review. I then copiously irrigated the right upper quadrant. Some mild oozing was noted in the liver bed and this was controlled with the bovie cautery. I then placed some hemostatic powder in the liver bed. Hemostasis was noted in the liver bed, the clips were noted to be in good position on both the cystic duct stump and the cystic artery stump. No other pathology was noted in the right upper quadrant. I then place a CHIDI drain in the RUQ coming out through the lateral 5 mm port site given the amount of inflammation, infection. I then moved the laparoscope to the subxiphoid port. No iatrogenic injury or other pathology was noted in the lower abdomen. I then closed the 12 mm trocar site under direct visualization using the Javed cone and 0 Vicryl suture. At this point, the abdomen was desufflated and all ports removed. All port sites were then closed with 4.O Monocryl subcuticular sutures. Dermabond was placed on each incision. The patient tolerated the procedure well, was extubated in the operating room postoperative and will be transferred to the recovery room in stable condition Estimated Blood Loss 40 Urine Output 900 Drains Yes Packing N
[2021-09-27] MEDS: fentaNYL CITRATE INJ (*CRX) 100 MCG/2 ML VIAL 25 MCG IV PUSH ×2 (16:21→16:24)
[2021-09-27] MEDS: DOCUSATE SODIUM 100 MG CAPSULE PO (21:00)
[2021-09-28 00:29] VITALS: BP 105/48; PULSE 74; RESP 20; TEMP 35.7; O2SAT 91
--- NOTE | 2021-09-28 04:49 | PC.NURSE ---
09/28/21 0449 while making rounds noted pt's otilia drain not compressed. pt reminded not to deflate drain. pt stated he has been emptying otilia drain. pt informed staff will empty drain, pt verbalized understanding.
[2021-09-28 05:41] VITALS: BP 113/54; PULSE 70; RESP 20; TEMP 35.9; O2SAT 96
[2021-09-28 06:06] LABS: Anion Gap 6 mmol/L (8-16); Blood Urea Nitrogen 29 mg/dL (9-20); Calcium 7.8 mg/dL (8.4-10.2); Carbon Dioxide 25 mmol/L (22-30); Chloride 106 mmol/L (98-107); Estimated CRCL calculation 31 ml/min; Estimated Glomerular Filt Rate 42; Glucose 94 mg/dL (65-110); Magnesium 1.8 mg/dL (1.6-2.3); Potassium 3.5 mmol/L (3.4-5.0); Sodium 137 mmol/L (137-145)
--- NOTE | 2021-09-28 07:11 | WPDUROPN2 ---
Progress Note: A&P Assessment and Plan (1) Hydronephrosis due to obstruction of ureter: Code(s): N13.1 - Hydronephrosis with ureteral stricture, not elsewhere classified Status: Acute (2) Calculus of distal left ureter: Code(s): N20.1 - Calculus of ureter Status: Acute Assessment and Plan: Tolerating left ureteral stent well. Eventually, will need left ESWL but will defer for several weeks. Subjective Subjective Date/Time Seen: 09/28/21 07:11 Comfortable, minimal abdominal discomfort. Tolerating stent well. Review of Systems Cardiovascular: Cardiovascular: Denies chest pain, Denies lightheadedness, Denies palpitations and Denies dyspnea Respiratory: Respiratory: Denies dyspnea Gastrointestinal: Gastrointestinal: Denies diarrhea, Denies nausea and Denies vomiting Genitourinary: Genitourinary: Denies hematuria and Denies dysuria Endocrine: Endocrine: Denies palpitations Exam Const: General: no acute distress Resp: Effort & Inspection: normal respiratory effort GI: Inspection: non-distended GI Palp: No abdominal tenderness and No Guarding due to palpation present (GI) Auscultation: normal bowel sounds Objective Data Vital Signs Vital Signs: Vital Signs - 24 hr 09/27/21 10:00 09/27/21 14:09 09/27/21 16:00 Temperature 98.6 F 98.6 F 97.3 F L Pulse Rate 92 92 94 Respiratory Rate 20 18 20 Blood Pressure 131/56 L 130/64 135/67 Pulse Oximetry 97 97 98 09/27/21 16:15 09/27/21 16:30 09/27/21 16:45 Temperature Pulse Rate 88 78 77 Respiratory Rate 18 20 20 Blood Pressure 115/39 L 118/61 105/63 Pulse Oximetry 98 99 92 09/27/21 17:00 09/27/21 17:40 09/27/21 17:55 Temperature 97.8 F 97.8 F Pulse Rate 80 74 73 Respiratory Rate 20 18 15 Blood Pressure 104/58 L 109/48 L 105/63 Pulse Oximetry 93 95 97 09/27/21 18:25 09/27/21 20:28 09/28/21 00:29 Temperature 97.4 F L 96.9 F L 96.3 F L Pulse Rate 81 65 74 Respiratory Rate 16 20 20 Blood Pressure 124/57 L 106/49 L 105/48 L Pulse Oximetry 93 98 91 09/28/21 05:41 Temperature 96.7 F L Pulse Rate 70 Respiratory Rate 20 Blood Pressure 113/54 L Pulse Oximetry 96 Intake/Output Intake/Output: Intake & Output 09/25/21 09/26/21 09/27/21 09/28/21 23:59 23:59 23:59 23:59 Intake Total 2200 2720 3700 440 Output Total 200 2825 320 Balance 2000 2720 875 120 Meds/Results Medications: Active Medications Generic Name Dose Route Start Last Admin Trade Name Freq PRN Reason Stop Dose Admin Acetaminophen 650 mg 09/26/21 09:37 Acetaminophen 325 Mg Tablet PO Q4H PRN Pain Rated 1-3 Hydrocodone Bitart/Acetaminophen 1 tab 09/27/21 17:20 Hydrocodone/Acetaminophen (*Crx) 5-325 Mg Tablet PO Q4H PRN Pain Rated 4-6 Docusate Sodium 100 mg 09/27/21 21:00 09/27/21 21:00 Docusate Sodium 100 Mg Capsule PO 100 mg Q12HR NATALYA Administration Duloxetine HCl 30 mg 09/25/21 09:00 09/27/21 09:26 Duloxetine Hcl 30 Mg Capsule.Dr PO 30 mg DAILY NATALYA Administration Sodium Chloride 1,000 mls @ 100 mls/hr 09/24/21 20:15 09/27/21 23:06 Normal Saline Iv IV CONT 100 mls/hr .Q10H NATALYA Administration Piperacillin Sod/Tazobactam Sod 2.25 gm in 50 mls @ 100 mls/hr 09/25/21 03:00 09/28/21 04:31 Zosyn 2.25 Gm/D5w 50 Ml IVPB Infused Q6H NATALYA Infusion Morphine Sulfate 2 mg 09/24/21 20:14 09/25/21 14:39 Morphine Sulfate (*Crx) 2 Mg/Ml Inj IV PUSH 2 mg Q4H PRN Administration Pain Rated 7-10 Ondansetron HCl 4 mg 09/24/21 20:14 Ondansetron Inj 4 Mg/2 Ml Vial IV PUSH Q6H PRN Nausea And Vomiting Rosuvastatin Calcium 10 mg 09/25/21 09:00 09/27/21 09:26 Rosuvastatin 10 Mg Tablet PO 10 mg DAILY NATALYA Administration Radiology Results: ITS Impressions Hepatobiliary Scan Nuclear Medicine 09/25/21 15:28 IMPRESSION: 1. Acute cholecystitis. Ureter Stent X-Ray 09/27/21 15:26 IMPRESSION: 1. Left internal urete
[2021-09-28 07:54] LABS: Basophils Percent Auto 0.2 % (0.2-1.2); Eosinophils Absolute Auto 0.1 K/mm3 (0-0.3); Eosinophils Percent Auto 1.4 % (0-4.4); Hematocrit 30.7 % (42.0-52.0); Hemoglobin 9.9 g/dL (14.0-18.0); Immature Granulocyte Absolute 0.04 K/mm3 (0.00-0.031); Immature Granulocyte Percent A 0.4 % (0-0.5); Lymphocytes Absolute Auto 1.48 K/mm3 (0.9-3.2); Lymphocytes Percent Auto 16.2 % (18.3-44.2); Mean Corpuscular HGB Conc 32.2 g/dl (32-36); Mean Corpuscular Hemoglobin 33.6 pg (26-34); Mean Corpuscular Volume 104.1 fl (80-100); Monocytes Percent Auto 11.4 % (2.6-8.5); Neutrophils Absolute Auto 6.4 K/mm3 (1.3-6.7); Neutrophils Percent Auto 70.4 % (45.5-73.1); Platelet Count Result 148 k/mm3 (150-375); Red Blood Count 2.95 M/mm3 (4.6-6.20); Red Cell Distribution Width 13.2 % (11.5-14.5); White Blood Count 9.1 K/mm3 (4.5-10.0)
[2021-09-28] MEDS: DULoxetine HCL 30 MG CAPSULE.DR PO (08:12)
[2021-09-28] MEDS: ROSUVASTATIN 10 MG TABLET PO (08:12)
[2021-09-28] MEDS: DOCUSATE SODIUM 100 MG CAPSULE PO (08:12)
[2021-09-28] MEDS: SODIUM CHLORIDE 0.9% IV 1,000 ML 100 ML IV CONT ×2 (08:14→08:15)
[2021-09-28 10:00] VITALS: BP 110/51; PULSE 93; RESP 20; TEMP 37.1; O2SAT 93
--- NOTE | 2021-09-28 11:08 | P.PNAN_ITS ---
Anes - Prog Note Post-Op Date/Time: 09/28/21 11:08 Cardiovascular status: normal Respiratory status: normal Airway patency: baseline Mental status: baseline Post-Op hydration status: normal Vital Signs: Last Vital Signs Temp 37.1 C 09/28/21 10:00 Pulse 93 09/28/21 10:00 Resp 20 09/28/21 10:00 BP 110/51 L 09/28/21 10:00 Pulse Ox 93 09/28/21 10:00 Pain Score (VAS): 2 I/O: Intake & Output 09/27/21 09/28/21 09/28/21 23:59 07:59 15:59 Intake Total 1600 214 7620 Output Total 125 320 30 Balance 8732 358 7317 Laboratory Tests 09/28/21 05:42 09/28/21 05:42 09/28/21 09/28/21 05:42 05:42 WBC 9.1 RBC 2.95 L Hgb 9.9 L Hct 30.7 L MCV 104.1 H D MCH 33.6 MCHC 32.2 RDW 13.2 Plt Count 148 L MPV 10.0 Immature Gran % (Auto) 0.4 Neut % (Auto) 70.4 Lymph % (Auto) 16.2 L [place] % (Auto) 11.4 H Eos % (Auto) 1.4 Baso % (Auto) 0.2 Lymph # (Auto) 1.48 [place] # (Auto) 1.0 H Eos # (Auto) 0.1 Baso # (Auto) 0.0 Abs Immat Gran (auto) 0.04 H Absolute Neuts (auto) 6.4 Absolute Nucleated RBC 0.0 Nucleated RBC % 0.0 Sodium 137 Potassium 3.5 Chloride 106 Carbon Dioxide 25 Anion Gap 6 L BUN 29 H Creatinine 1.60 H Estim Creat Clear Calc 31 Estimated GFR 42 L Glucose 94 Calcium 7.8 L Magnesium 1.8 Post-procedural complaints: none Patient Feedback: Patient satisfied with anesthetic care.
--- NOTE | 2021-09-28 12:01 | PM.PNGS ---
Progress Note: A&P Assessment and Plan (1) Acute cholecystitis: Code(s): K81.0 - Acute cholecystitis Status: Acute Assessment and Plan: doing well, ok to dc from surgical standpoint, home c drain, po abx, analgesia, f/u next wk for drain removal Subjective Subjective Date/Time Seen: 09/28/21 12:01 doing well, marilee diet, reports no issues Review of Systems Review of Systems: All systems reviewed & are unremarkable except as noted in HPI and below Exam Const: General: cooperative, comfortable and no acute distress Resp: Auscultation: clear to auscultation bilaterally Cardio: Rate: regular rate Rhythm: regular rhythm GI: Inspection: normal to inspection, non-distended and incision GI Palp: Yes Soft to palpation, No Tenderness to palpation present (GI), No Guarding due to palpation present (GI) and No Rigid due to palpation Other: CHIDI c mod s/s fluid Objective Data Vital Signs Vital Signs: Vital Signs - 24 hr 09/27/21 14:09 09/27/21 16:00 09/27/21 16:15 Temperature 37.0 C 36.3 C L Pulse Rate 92 94 88 Respiratory Rate 18 20 18 Blood Pressure 130/64 135/67 115/39 L Pulse Oximetry 97 98 98 09/27/21 16:30 09/27/21 16:45 09/27/21 17:00 Temperature Pulse Rate 78 77 80 Respiratory Rate 20 20 20 Blood Pressure 118/61 105/63 104/58 L Pulse Oximetry 99 92 93 09/27/21 17:40 09/27/21 17:55 09/27/21 18:25 Temperature 36.6 C 36.6 C 36.3 C L Pulse Rate 74 73 81 Respiratory Rate 18 15 16 Blood Pressure 109/48 L 105/63 124/57 L Pulse Oximetry 95 97 93 09/27/21 20:28 09/28/21 00:29 09/28/21 05:41 Temperature 36.1 C L 35.7 C L 35.9 C L Pulse Rate 65 74 70 Respiratory Rate 20 20 20 Blood Pressure 106/49 L 105/48 L 113/54 L Pulse Oximetry 98 91 96 09/28/21 10:00 Temperature 37.1 C Pulse Rate 93 Respiratory Rate 20 Blood Pressure 110/51 L Pulse Oximetry 93 Intake/Output Intake/Output: Intake & Output 09/25/21 09/26/21 09/27/21 09/28/21 23:59 23:59 23:59 23:59 Intake Total 2200 2720 3700 2790 Output Total 200 2825 350 Balance 2000 2720 872 2440 Meds/Results Medications: Active Medications Generic Name Dose Route Start Last Admin Trade Name Freq PRN Reason Stop Dose Admin Acetaminophen 650 mg 09/26/21 09:37 Acetaminophen 325 Mg Tablet PO Q4H PRN Pain Rated 1-3 Hydrocodone Bitart/Acetaminophen 1 tab 09/27/21 17:20 Hydrocodone/Acetaminophen (*Crx) 5-325 Mg Tablet PO Q4H PRN Pain Rated 4-6 Docusate Sodium 100 mg 09/27/21 21:00 09/28/21 08:12 Docusate Sodium 100 Mg Capsule PO 100 mg Q12HR NATALYA Administration Duloxetine HCl 30 mg 09/25/21 09:00 09/28/21 08:12 Duloxetine Hcl 30 Mg Capsule.Dr PO 30 mg DAILY NATALYA Administration Sodium Chloride 1,000 mls @ 100 mls/hr 09/24/21 20:15 09/28/21 08:15 Normal Saline Iv IV CONT 100 mls/hr .Q10H NATALYA Administration Piperacillin Sod/Tazobactam Sod 2.25 gm in 50 mls @ 100 mls/hr 09/25/21 03:00 09/28/21 08:50 Zosyn 2.25 Gm/D5w 50 Ml IVPB Infused Q6H NATALYA Infusion Morphine Sulfate 2 mg 09/24/21 20:14 09/25/21 14:39 Morphine Sulfate (*Crx) 2 Mg/Ml Inj IV PUSH 2 mg Q4H PRN Administration Pain Rated 7-10 Ondansetron HCl 4 mg 09/24/21 20:14 Ondansetron Inj 4 Mg/2 Ml Vial IV PUSH Q6H PRN Nausea And Vomiting Rosuvastatin Calcium 10 mg 09/25/21 09:00 09/28/21 08:12 Rosuvastatin 10 Mg Tablet PO 10 mg DAILY NATALYA Administration Radiology Results: ITS Impressions Hepatobiliary Scan Nuclear Medicine 09/25/21 15:28 IMPRESSION: 1. Acute cholecystitis. Ureter Stent X-Ray 09/27/21 15:26 IMPRESSION: 1. Left internal ureteral stent placement. Please refer to real-time procedural findings for details. Labs Labs: Laboratory Results - last 24 hr 09/28/21 09/28/21 05:42 05:42 WBC 9.1 RBC 2.95 L Hgb 9.9 L Hct 30.7 L MCV 104.1 H D MCH 33.6 MCHC 32.2 RDW 13.2 Plt Count
--- NOTE | 2021-09-28 12:31 | PM.DS ---
DS: Admitting Diagnosis Discharge Date 09/28/21 Admitting Diagnosis Acute cholecystitis, hydronephrosis with ureteral stricture, distal left ureter calculus DS: Discharge Diagnosis Discharge Diagnosis (1) Hydronephrosis due to obstruction of ureter: Code(s): N13.1 - Hydronephrosis with ureteral stricture, not elsewhere classified Status: Acute (2) Calculus of distal left ureter: Code(s): N20.1 - Calculus of ureter Status: Acute (3) Acute cholecystitis: Code(s): K81.0 - Acute cholecystitis Status: Acute (4) Cardiac murmur: Code(s): R01.1 - Cardiac murmur, unspecified Status: Acute DS: Summary Hospital Course Reason for hospitalization: Acute cholecystitis and left ureteral stone Hospital Course: Patient is an 81-year-old male with past medical history hyperlipidemia, cardiac murmur presents from [facility] and [facility] for epigastric pain. Patient was found to have acute cholecystitis and also left ureteral stone. Patient subsequently had laparoscopic cholecystectomy with Dr. Ross. The gallbladder was very gangrenous so patient will be on ciprofloxacin for 5 days and CHIDI drain was placed. Patient will follow-up with General surgery in 1 week for CHIDI drain removal. Postop day 1 leukocytosis normalized. For the left distal ureter calculus patient had cystoscopy and left stent placement by Dr. Reynoso. Patient will need follow-up left ESWL in a couple weeks. He will be discharged with dressing changes for his CHIDI drain. At time of discharge patient's vitals are stable, labs stable, patient is stable for discharge home. Patient understands and agrees with plan. Status at Discharge Cognitive/behavioral status at discharge: At baseline mentation Functional status at discharge: independent ambulation Overall status at discharge: patient is back to baseline Time Spent with Patient Time attestation: Total time spent providing and/or coordinating discharge services:35 Time spent: Greater than 30 minutes Exam Narrative: - GENERAL: Pleasant elderly male in no acute distress. - EYES: EOMI. Anicteric. - HENT: Moist mucous membranes. - LUNGS: Clear to auscultation bilaterally, no wheezing, rhonchi, or rales. - CARDIOVASCULAR: Regular rate and rhythm. No murmur. No JVD. - ABDOMEN: Soft, non-distended. Abdominal pain on deep palpation. No palpable masses. Right lower quadrant postop CHIDI drain present with less than 10 cc sanguinous fluid - EXTREMITIES: No edema. Peripheral pulses 2+. Non-tender. - NEUROLOGIC: No focal neurological deficits. CN II-XII grossly intact. - PSYCHIATRIC: Awake, Alert and oriented x 3. Appropriate mood and affect. - SKIN: No rashes or lesions. Warm. - LYMPH: No cervical lymphadenopathy. DS: Data Data Completed and Pending Pending studies at discharge: Pending at discharge 09/27/21 15:21 Surgical [PTH] Routine Labs on day of discharge: Labs from last 24 hours 09/28/21 09/28/21 05:42 05:42 WBC 9.1 RBC 2.95 L Hgb 9.9 L Hct 30.7 L MCV 104.1 H D MCH 33.6 MCHC 32.2 RDW 13.2 Plt Count 148 L MPV 10.0 Immature Gran % (Auto) 0.4 Neut % (Auto) 70.4 Lymph % (Auto) 16.2 L [place] % (Auto) 11.4 H Eos % (Auto) 1.4 Baso % (Auto) 0.2 Lymph # (Auto) 1.48 [place] # (Auto) 1.0 H Eos # (Auto) 0.1 Baso # (Auto) 0.0 Abs Immat Gran (auto) 0.04 H Absolute Neuts (auto) 6.4 Absolute Nucleated RBC 0.0 Nucleated RBC % 0.0 Sodium 137 Potassium 3.5 Chloride 106 Carbon Dioxide 25 Anion Gap 6 L BUN 29 H Creatinine 1.60 H Estim Creat Clear Calc 31 Estimated GFR 42 L Glucose 94 Calcium 7.8 L Magnesium 1.8 Discharge Plan Discharge Attending physician on discharge: Vladimir Rosales Consulting providers: Zelda Ross ; Cipriano Reynoso Discharging Clinician: Vladimir Rosales Anticipated Discharge Date/Time: 09/28/21 12:28 Patient Disposition: Home,
--- NOTE | 2021-09-28 13:45 | PC.NURSE ---
On 09/28/21, the student, [Subhash Freire, Niko Diggs], provided care and [facility] on this patient. I have reviewed the student's documentation and agree with the findings.
[2021-09-28 14:00] VITALS: BP 113/58; PULSE 80; RESP 20; TEMP 36.2; O2SAT 96
== END 2021-09-28 14:10 | disposition home or self-care (01) | DRG 418 ==
PROVIDERS: Internal Medicine; Nurse Practitioner Family; Surgery; Urology; Admitting Provider Internal Medicine; PCP Family Medicine; Visit Provider Student in an Organized Health Care Education/Training Program
PROC: 0FT44ZZ Resection of Gallbladder, Percutaneous Endoscopic Approach (ICD-10-PCS; CPT 47562; principal; 2021-09-27 14:15)
PROC: 0T778DZ Dilation of Left Ureter with Intraluminal Device, Via Natural or Artificial Opening Endoscopic (ICD-10-PCS; CPT 52352; 2021-09-27 14:15)
DX: K81.0 Acute cholecystitis (principal); N13.1 Hydronephrosis with ureteral stricture, not elsewhere classified; N20.1 Calculus of ureter; R01.1 Cardiac murmur, unspecified; E78.5 Hyperlipidemia, unspecified; G89.29 Other chronic pain; G62.9 Polyneuropathy, unspecified; N18.30 Chronic kidney disease, stage 3 unspecified; K82.A1 Gangrene of gallbladder in cholecystitis; I27.20 Pulmonary hypertension, unspecified; I07.1 Rheumatic tricuspid insufficiency; I12.9 Hypertensive chronic kidney disease with stage 1 through stage 4 chronic kidney disease, or unspecified chronic kidney disease; I71.4 Abdominal aortic aneurysm, without rupture; Z66 Do not resuscitate; Z79.899 Other long term (current) drug therapy
CPT/HCPCS: 36415; 78227; 80048; 80053; 82150; 83690; 83735; 85025; 85027; 86850; 86900; 86901; 88304; 93005; 93306; 96361; 96365; 96375; A9270; A9537; C1758; C1769; C1887; C2617; C8929; G0378; J0690; J1885; J1940; J2270; J2405; J2543; J2704; J3010; J7030; J7120; Q9957

== ENCOUNTER 2021-10-16 11:21 | Outpatient (CLI) | payer MEDICARE, SELFPAY ==
[2021-10-16 12:32] LABS: Partial Thromboplastin Time 26.3 SECONDS (22.3-36.8)
[2021-10-16 12:38] LABS: Prothrombin Time 12.7 Seconds (11.1-14.7)
== END 2021-10-16 11:22 | disposition home or self-care (01) ==
LOC: ANHSURGERY 11:27
PROVIDERS: PCP Family Medicine; Visit Provider Urology
DX: Z01.812 Encounter for preprocedural laboratory examination (principal); N20.1 Calculus of ureter; Z51.81 Encounter for therapeutic drug level monitoring; Z79.899 Other long term (current) drug therapy
CPT/HCPCS: 36415; 85610; 85730; 87086

== ENCOUNTER 2021-10-26 04:18 | Day surgery (SDC) | payer MEDICARE, SELFPAY ==
[2021-10-12 08:48] VITALS: BMI 26.6
--- NOTE | 2021-10-12 09:12 | PC.NURSE ---
Report to the Outpatient Waiting Room, entrance under the green pavilion located off [facility], at time __6:00AM on date _10/26/21 . OR Time: _7:30AM . - You and your visitor will be asked a series of questions to screen for COVID 19 for your protection. - A mask is required within the hospital. Preoperative COVID Testing Requirements: No COVID Test needed if: (proof is required; if not received patient will have Rapid Test prior to entry) - Patient has received COVID Vaccine at least 14 days prior to procedure date or - Patient has positive COVID test result within last 90 days of surgery date. COVID Test needed if above criteria is not met If not COVID vaccinated a COVID test must be conducted within 72 hours of surgery and patient is asked to isolate self from time of testing until procedure. You will go to the [employer] [facility] for your COVID testing. The [employer] [facility] site is located at the corner of [address] [facility]. You will only be called if COVID results are positive and your surgeon may reschedule your elective surgery date. Patients may have clear liquids (water, carbonated beverages, clear teas, apple juice) until 3 hours prior to surgery with a maximum of 20 ounces. - No food from midnight until time of surgery - Infants may have breast milk until 4 hours before surgery, formula 6 hours prior to surgery. - Children will be allowed to drink immediately following surgery. If applicable, please bring a bottle or sippy cup to assist with drinking. Juice, water, soda, and popsicles are readily available. For infants on formula, please bring formula the day of surgery. Pacifiers are allowed. Take the following medications with a SIP of water the morning of surgery: __DULOXETINE, HYDROCODONE NEEDED Medications to discontinue per physician HOLD ASPIRIN_PER DR HSOEMAKER( STATES HE IS ALREADY HOLDING ASPIRIN) Date to take last dose Please no make-up, nail romansh, hairspray, perfume, deodorant, or body powder the day of surgery. No jewelry (including any body piercings) or valuables the day of surgery, leave them at home. Please take a shower or bath the night before, or the morning of, surgery with an antibacterial soap. Wear comfortable, loose fitting clothing. Children are encouraged to wear pajamas. - Jewelry must be removed prior to entering the operating room. Rings and piercings that are not removed may be cut off. - The hospital will not accept responsibility for valuables. - Please leave all valuables, including medications, at home the day of surgery. If you are going home after surgery, a licensed parts delivery driver must drive you home. - NO public transportation without another adult. - We recommend that an adult stay with you for 24 hours following discharge. - We also recommend that you do not drive, make important decision, drink alcoholic beverages, or take any drugs that were not prescribed by your health care provider for at least 24 hours after your discharge time. For Pediatric surgeries, we recommend two adults accompany the child home (only one inside the building at this time). One visitor will be allowed to accompany the patient into the hospital. Patients visitor will be instructed to remain with patient at all times or leave the building. We will allow the visitor to come back to the postoperative area when patient is ready. Follow any additional instructions given to you from your surgeon. Telephone instructions given to _WIFECODEY____and asked if any additional questions and then verbalized understanding. Patient advised to call surgeon office or pre surgery nurse liaison [phone] if any additional questions.
--- NOTE | 2021-10-22 09:12 | PM.HPGS ---
History of Present Illness History of Present Illness Consent: Risks, benefits, and alternatives have been discussed and questions answered. Patient agrees to proceed with procedure. Chief complaint: left ureteral stone Narrative: Ruiz Stanton is a 81 year old male Who I was introduced to in September 2021 when he was transferred from [facility] with acute cholecystitis. CT imaging also demonstrated a large obstructing left proximal ureteral stone. I placed ureteral stent at that time and he now presents for definitive intervention with left ESWL. He is aware of the risk of this procedure including, but not limited to, adverse cardiopulmonary events, renal injury, hematuria and failure to completely treat the stone with 1 treatment. Review of Systems Cardiovascular: Cardiovascular: Denies chest pain, Denies lightheadedness, Denies palpitations and Denies dyspnea Respiratory: Respiratory: Denies dyspnea Gastrointestinal: Gastrointestinal: Denies diarrhea, Denies nausea and Denies vomiting Genitourinary: Genitourinary: Denies hematuria and Denies dysuria Endocrine: Endocrine: Denies palpitations [facility] Past Medical History Medical History Cardiac murmur Chronic neuropathic pain Hyperlipidemia Shingles He reports that he takes duloxetine 300 mg daily due to chronic pain from shingles. Surgical History Surgical History Hx laparoscopic cholecystectomy 09/25/2021 Status post cataract extraction of both eyes with insertion of intraocular lens Family History Family History Father , Age greater than 80 No problems noted. Mother , Age greater than 80 Gallbladder disease Social History Social History Social History: He lives with his of almost 60 years. He quit smoking over 40 years ago and only smoked 1 cigar a day. 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 He has never drank alcohol and denies any illicit substance use. Code status: DNR/DNI (per patient request) Primary care physician: Dr. James Groves Smoking packs per day: 1 Smoking cigarettes per day: 20.0 Years smoked: 12 Smoking pack-years: 12.00 Smoking status: Former smoker Tobacco type: cigarettes Smoking end date: 01/11/70 Alcohol intake: never Substance use: never Additional living arrangements comments: Spiritual care concerns: No Meds Home Medications and Allergies Home Medications Medication Instructions Recorded Confirmed Type duloxetine 30 mg PO QAM 09/24/21 10/12/21 History rosuvastatin 10 mg PO DAILY 09/24/21 10/12/21 History hydrocodone-acetaminophen 1 tablet PO Q6H PRN #20 tablet 09/28/21 10/12/21 Rx aspirin [Adult Low Dose Aspirin] 81 mg PO DAILY 10/12/21 10/12/21 History tamsulosin 0.4 mg PO DAILY 10/12/21 10/12/21 History Allergies Allergy/AdvReac Type Severity Reaction Status Date / Time No Known Allergies Allergy Verified 10/12/21 08:43 Exam Const: General: no acute distress Resp: Effort & Inspection: normal respiratory effort GI: Inspection: non-distended GI Palp: No abdominal tenderness and No Guarding due to palpation present (GI) Auscultation: normal bowel sounds Assessment and Plan Assessment and plan (1) Hydronephrosis due to obstruction of ureter: Code(s): N13.1 - Hydronephrosis with ureteral stricture, not elsewhere classified Status: Acute (2) Calculus of distal left ureter: Code(s): N20.1 - Calculus of ureter Status: Acute Assessment and Plan: Left ESWL
--- NOTE | 2021-10-25 12:40 | WPDANESEPPF ---
Anes - Initial Pre Proc Eval Procedure: Operation Date: 10/26/21 07:30 Proposed Procedures p Left Ureteral Extracorporeal Shock Wave Lithotripsy - Cipriano Reynoso MD Date/Time: 10/25/21 12:40 Surgeon: Cipriano Reynoso MD Pre Op Diagnosis: left ureteral stone Patient Data Age: 81 Gender: M Height: 1.7 m Weight: 77 kg Allergies Allergy/AdvReac Type Severity Reaction Status Date / Time No Known Allergies Allergy Verified 10/26/21 06:47 Home Medications Medication Instructions Recorded Confirmed Type duloxetine 30 mg PO QAM 09/24/21 10/26/21 History rosuvastatin 10 mg PO DAILY 09/24/21 10/26/21 History hydrocodone-acetaminophen 1 tablet PO Q6H PRN #20 tablet 09/28/21 10/26/21 Rx aspirin 81 mg PO DAILY 10/12/21 10/26/21 History tamsulosin 0.4 mg PO DAILY 10/12/21 10/26/21 History hydrocodone-acetaminophen 1 - 2 tablet PO Q6H PRN #20 tablet 10/26/21 Rx sulfamethoxazole-trimethoprim 1 tablet PO Q12H #6 tablet 10/26/21 Rx Patient hx anesthesia problems: none Family hx anesthesia problems: none Results Review: All pre-operative results and documents have been reviewed as part of the pre-operative evaluation. [facility] Past Medical History Medical History (Updated 10/26/21 @ 08:08 by Cipriano Reynoso MD) Cardiac murmur Chronic neuropathic pain Hyperlipidemia Shingles He reports that he takes duloxetine 300 mg daily due to chronic pain from shingles. TIA (transient ischemic attack) 2018 Surgical History Surgical History Hx laparoscopic cholecystectomy 09/25/2021 Status post cataract extraction of both eyes with insertion of intraocular lens Family History Family History Father , Age greater than 80 No problems noted. Mother , Age greater than 80 Gallbladder disease Social History Social History Social History: He lives with his of almost 60 years. He quit smoking over 40 years ago and only smoked 1 cigar a day. 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 He has never drank alcohol and denies any illicit substance use. Code status: DNR/DNI (per patient request) Primary care physician: Dr. James Groves Smoking packs per day: 1 Smoking cigarettes per day: 20.0 Years smoked: 12 Smoking pack-years: 12.00 Smoking status: Former smoker Tobacco type: cigarettes Smoking end date: 01/11/70 Alcohol intake: never Substance use: never Living arrangements: with family Additional living arrangements comments: Spiritual care concerns: No Anes - Eval Final PreProcedure Day of Procedure 10/25/21 12:40 Patient weight: overweight Heart: regular rate and rhythm Lungs: clear to auscultation and normal air movement Airway: Mallampati scale class II Neurological: alert and oriented Last oral intake: >/= 8 hours ASA classification: III Emergent: no Anesthetic plan: proceed Anesthesia type and monitoring: general LMA and standard monitoring Results Review: All pre-operative results and documents have been reviewed as part of the pre-operative evaluation. Informed Consent: The patient's anesthetic plan and its attendant risks and benefits were discussed with the patient/family/POA. Questions were solicited and answers provided to the satisfaction of the patient/family/POA.
--- NOTE | ~2021-10-26 | XR_ITS ---
EXAMINATION: XR abdomen/kub 1V INDICATION: Kidney stone TECHNIQUE: Supine views of the abdomen were obtained on 2 radiographs. COMPARISON: None FINDINGS: A left internal ureteral stent is in expected position. A 1.5 cm stone projects adjacent to the proximal aspect of the stent. No additional urolithiasis is identified. Cholecystectomy clips ar e noted. The bowel gas pattern is normal. IMPRESSION: 1. 1.5 cm stone adjacent to the proximal aspect of the left internal ureteral stent. Reviewed, dictated and finalized at location A. IMPRESSION: 1. 1.5 cm stone adjacent to the proximal aspect of the left internal ureteral s tent.
[2021-10-26 06:23] VITALS: BP 136/73; PULSE 80; RESP 20; TEMP 36.4; O2SAT 98
--- NOTE | 2021-10-26 06:23 | WPDHPUPDATE1 ---
History and Physical Update Update Date/Time: 10/26/21 06:23 History and Physical has been reviewed, including an updated exam of the patient. There are NO changes in the patient's condition. Risks, benefits, and alternatives have been discussed and questions answered. Patient agrees to proceed with procedure.
[2021-10-26] MEDS: LACTATED RINGERS 1,000 ML 30 ML IV CONT (06:55)
[2021-10-26] MEDS: ceFAZolin 2 GM/D5W 50 ML 2 GM/50 ML BAG IVPB (07:22)
--- NOTE | 2021-10-26 08:04 | W.PM.PROC2 ---
Procedure Note - Detailed Date of Procedure 10/26/21 Pre-op Diagnosis Left ureteral stone Post-op Diagnosis Same Procedure Performed Left ESWL Surgeon Cipriano Reynoso MD Anesthesia General Description of Procedure The patient was brought to the operative suite where he was placed in the supine position on the Dornier lithotripsy table. The focal point of the lithotripter was placed at a 1cm left renal calculus. A total of 2500 shocks were delivered at a power setting of 4. There appeared to be good fragmentation of the stone. The patient tolerated the procedure well and was taken to the recovery room in good condition. Drains No Packing No Pathology None sent Complications No immediate complications Condition Stable Disposition PACU
[2021-10-26 08:10] VITALS: BP 128/77; PULSE 80; RESP 10; TEMP 36.2; O2SAT 100
[2021-10-26 08:20] VITALS: BP 131/70; PULSE 77; RESP 12; O2SAT 98
[2021-10-26 08:30] VITALS: BP 116/57; PULSE 85; RESP 14; O2SAT 99
[2021-10-26 08:40] VITALS: BP 127/64; PULSE 88; RESP 14
[2021-10-26 09:10] VITALS: BP 114/53; PULSE 82; RESP 14
== END 2021-10-26 09:20 | disposition home or self-care (01) ==
PROVIDERS: Visit Provider Urology
PROC: (CPT 50590; principal; 2021-10-26 07:30)
DX: N20.1 Calculus of ureter (principal); N13.1 Hydronephrosis with ureteral stricture, not elsewhere classified; E78.5 Hyperlipidemia, unspecified; Z90.49 Acquired absence of other specified parts of digestive tract; Z87.891 Personal history of nicotine dependence; Z79.82 Long term (current) use of aspirin; R01.1 Cardiac murmur, unspecified
CPT/HCPCS: 50590; 74018; J0690; J1100; J2405; J2704; J3010; J7120